=== PATIENT | female | born 1955 | race Caucasian/White ===

== ENCOUNTER 2022-10-24 15:10 | Emergency (ER) | payer MEDICARE, MEDICAID ==
[2022-10-24] MEDS ORDERED: Sodium Chloride 0.9% 10 ML Syringe FLUSH PRN (15:31)
[2022-10-24 16:16] LABS: HEMOGLOBIN 12.9 g/dL (12.0-16.0); MEAN CORPUSCULAR HEMOGLOBIN 30.6 pg (26.0-32.0); MEAN CORPUSCULAR HGB CONC 33.9 g/dL (32.0-36.0); MEAN CORPUSCULAR VOLUME 90.3 fL (78.0-93.0); PLATELET COUNT,PLT 313 x10^3/uL (130-400); RED BLOOD CELL COUNT 4.21 x10^6/uL (4.00-5.50); WHITE BLOOD CELL COUNT,WBC 23.1 x10^3/uL (4.0-10.0)
[2022-10-24] MEDS: Lactated Ringers 1,000 ML IV ONE (16:20)
[2022-10-24 16:23] LABS: ANISOCYTOSIS 1+ SLIGHT; EOSINOPHILS ABSOLUTE MAN 9.5 x10^3/uL (0.0-0.5); EOSINOPHILS PERCENT MAN 41 % (0-4); LYMPHOCYTES ABSOLUTE MAN 5.3 x10^3/uL (1.0-4.8); LYMPHOCYTES PERCENT MAN 23 % (25-50); MONOCYTES ABSOLUTE MAN 0.9 x10^3/uL (0.0-0.8); MONOCYTES PERCENT MAN 4 % (2-11); NEUTROPHILS ABSOLUTE MAN 7.4 x10^3/uL (1.8-7.7); PLATELET COUNT ESTIMATE ADEQUATE; SEG NEUTROPHILS PERCENT MAN 32 % (50-80)
[2022-10-24 16:28] LABS: INR 1.2 (2.0-3.5); PROTHROMBIN TIME 12.9 SEC (9.5-12.2); PTT,PARTIAL THROMBOPLSTIN TIME 25.9 SEC (23.6-33.6)
[2022-10-24 16:31] LABS: A/G RATIO 0.61; ALANINE AMINOTRANSFERASE,ALT 19 U/L (14-59); ALBUMIN 2.7 g/dL (3.4-5.0); ALKALINE PHOSPHATASE 125 U/L (46-116); ASPARTATE AMNIOTRANSFERASE,AST 25 U/L (15-37); BILIRUBIN TOTAL 0.3 mg/dL (0.2-1.0); C-REACTIVE PROTEIN 0.92 mg/dL (<=0.30); CALCIUM 9.2 mg/dL (8.5-10.1); CARBON DIOXIDE,CO2 20 mmol/L (21-32); CHLORIDE,CL 94 mmol/L (98-107); GLUCOSE RANDOM 164 mg/dL (70-99); MAGNESIUM 2.6 mg/dL (1.8-2.4); POTASSIUM,K 3.8 mmol/L (3.5-5.1); PROTEIN TOTAL,TP 7.1 g/dL (6.4-8.2)
[2022-10-24 16:33] LABS: ANION GAP 17.8 mmol/L (5-15); ESTIMATED GFR 63 mL/min (>=60)
[2022-10-24 16:34] LABS: LACTIC ACID 3.2 mmol/L (0.4-2.0); SODIUM,NA 128 mmol/L (136-145)
[2022-10-24 16:37] LABS: BLOOD UREA NITROGEN,BUN 69 mg/dL (7-18)
[2022-10-24 18:05] LABS: CORONAVIRUS COVID-19 NAA NEGATIVE (NEGATIVE); INFLUENZA A NAA NEGATIVE (NEGATIVE); INFLUENZA B NAA NEGATIVE (NEGATIVE); RESPIRATORY SYNCYTIAL VIR NAA NEGATIVE (NEGATIVE)
== END 2022-10-24 19:35 | disposition short-term general hospital (02) ==
LOC: VM.ED 15:10
DX: K56.7 Ileus, unspecified (principal); E87.20 Acidosis, unspecified; R11.2 Nausea with vomiting, unspecified; R19.7 Diarrhea, unspecified; E86.0 Dehydration; D72.829 Elevated white blood cell count, unspecified; Z88.8 Allergy status to other drugs, medicaments and biological substances; Z79.82 Long term (current) use of aspirin; Z79.899 Other long term (current) drug therapy; Z20.822 Contact with and (suspected) exposure to COVID-19
CPT/HCPCS: 0241U; 36415; 71045; 74019; 80053; 83605; 83735; 85025; 85610; 85730; 86140; 87040; 96360; 96361; 99284; 99285-25; J7120